=== PATIENT | female | born 1950 | race Caucasian/White ===

== ENCOUNTER 2023-05-04 10:46 | Day surgery (SDC) | payer MEDICARE, OTHER ==
[~2023-05-04] VITALS: Ht 157.5 cm; Wt 61.7 kg
[~2023-05-04 10:46] MED LIST: ALPRAZOLAM0.5 M2 PO; AMOXICILLIN500 MG PO; AZO BLADDER CON1 CAP PO; LAMICTAL100 M1 PO; LEVOTHYROXIN50 MCG PO; OSTEO BI-FLEX J1 TAB PO; PHOSLO667 MG PO; TUMERIC PO; VITAMIN D1000 UNI2 PO; ZYRTEC10 M5 PO
[2023-05-04 12:15] VITALS: BP 112/57
== END 2023-05-04 12:35 | disposition home or self-care (01) ==
LOC: ENDO 10:46 → ORM 13:20
PROVIDERS: ATTEND Internal Medicine Gastroenterology
PROC: 0DB98ZX Excision of Duodenum, Via Natural or Artificial Opening Endoscopic, Diagnostic (ICD-10-PCS; principal; 2023-05-04)
PROC: 0DB78ZX Excision of Stomach, Pylorus, Via Natural or Artificial Opening Endoscopic, Diagnostic (ICD-10-PCS; 2023-05-04)
PROC: 0DB58ZX Excision of Esophagus, Via Natural or Artificial Opening Endoscopic, Diagnostic (ICD-10-PCS; 2023-05-04)
DX: K29.70 Gastritis, unspecified, without bleeding (principal); K29.80 Duodenitis without bleeding; K31.7 Polyp of stomach and duodenum; K21.00 Gastro-esophageal reflux disease with esophagitis, without bleeding

== ENCOUNTER 2023-05-11 09:30 | Day surgery (SDC) | payer MEDICARE, OTHER ==
[~2023-05-11] VITALS: Ht 157.5 cm; Wt 60.8 kg
[2023-05-11 12:24] VITALS: BP 102/59
== END 2023-05-11 12:43 | disposition home or self-care (01) ==
LOC: ORM 09:30
PROVIDERS: ATTEND Internal Medicine Gastroenterology
PROC: 0DBE8ZX Excision of Large Intestine, Via Natural or Artificial Opening Endoscopic, Diagnostic (ICD-10-PCS; principal; 2023-05-11)
DX: K57.30 Diverticulosis of large intestine without perforation or abscess without bleeding (principal); K64.8 Other hemorrhoids